=== PATIENT | female | born 1975 | race Caucasian/White ===

== ENCOUNTER 2017-02-01 19:57 | Inpatient (IN) | payer MEDICAID, OTHER ==
[~2017-02-01] VITALS: Ht 162.6 cm; Wt 111.0 kg
[2017-02-02] MEDS ORDERED: CINN500C14 PO (00:51)
[2017-02-02] MEDS ORDERED: NYST1POW23 MC (00:51)
[2017-02-02] MEDS ORDERED: CHOL500051 PO (00:51)
[2017-02-02] MEDS ORDERED: EVEN500C2 PO (00:51)
[2017-02-02] MEDS ORDERED: CALC650T19 PO (00:51)
[2017-02-02] MEDS ORDERED: GLIP10TA10 PO (00:51)
[2017-02-02] MEDS ORDERED: LAMO25TA PO (00:51)
[2017-02-02] MEDS ORDERED: INSU100V7 SUBQ (00:51)
[2017-02-02] MEDS ORDERED: LIP40 PO (00:51)
--- NOTE | 2017-02-02 00:52 | NUR ---
med rec med rec completed per interview with patient. plan to contact jose sorensen for further clarification.
[2017-02-02] MEDS ORDERED: LORazepam 1 mg Tablet PO PRN (01:10)
[2017-02-02] MEDS ORDERED: Alum-Mag Hydrox-Simeth 30 mL Suspension PO PRN (01:10)
[2017-02-02] MEDS ORDERED: Benzocaine-Menthol Lozenge 2/Pkg PO PRN (01:10)
[2017-02-02] MEDS ORDERED: Magnesium Hydroxide 10 mL Oral Concentration PO PRN (01:10)
--- NOTE | 2017-02-02 02:40 | NUR ---
Observations 1900 to 0700 Pt arrived on the floor via ambulance form [place] at 23:35 and was able to complete the entire intake process. Pt was polite and cooperative. Pt went to her room after the intake process was completed. Pt requested an ice pack. Pt first appeared asleep at 01:30 and was observed every 15 minutes through the night as directed.
--- NOTE | 2017-02-02 03:22 | NUR ---
Admit Note Voluntary admit from [facility] in [place]. Arrived on unit @ 233. Certified for 4 days from 02/01/17 to 02/04/17, with extension due on . Cigarette smoker, marijuana a few times a week, alcohol once a month or less. Allergic to Aspirin, Ibuprofen, Latex. Hx of Bipolar disorder, HTN, hyperlipidemia, Breast CA, sleep apnea. Refer to h/p. Pt reports always having thoughts of suicide since 2nd grade. Suicidal thoughts have increased since diagnosis of breast cancer two years ago. She saw her counselor [facility] today who brought her into the hospital. She did not feel safe at home. This is her first psychiatric hospitalization. She has two young daughters ages 8 & 9 years. They are staying with her mother. Upon admit she rated SI 3/10 with plan to OD on Aspirin which she is allergic too. Depression 7/10, Anxiety 10/10. Pt has dealt with chronic pain since her youth. Upon admit she had [place] pain rated 8/10, neck/low back pain rated 7/10. She requested and received Tylenol 650mg po prn with apparent results. She has been sleeping with no further complaint of pain. Pt seeking help, pleasant and cooperative with care. Addendum: 02/02/17 at 0609 by NYASIA GRAHAM RN Pt awoke diaphoretic at 0445. She requested a shower which she stated made her feel much better. A short time later she was found crying in her bathroom during safety checks. She stated "I want to go home. I miss my girls. I can't smoke. I just want to leave!" Pt agreed to wait to speak with the doctor and was able to return to bed. She appeared asleep again at 0600. Total sleep over 3.5 hours.
[2017-02-02 10:57] VITALS: BP 123/78; PULSE 91; RESP 16
--- NOTE | 2017-02-02 11:52 | PCM.DIMED ---
Discharge Instructions Date of Service Feb 02, 2017 Dates of Hospitalization Feb 01, 2017 at 23:41 Discharge Diagnosis Discharge Diagnosis Mood DO NOS Somatoform Pain DO Diet No restrictions Activity No restrictions Tramaine Vanessa DO Feb 02, 2017 11:52
--- NOTE | 2017-02-02 12:53 | NUR ---
Nursing Home Manager./ c.m. S.:"I don't feel that this is a right place for me. Being here makes me more anxious. I want to go home and that will be best place for me right now." O.: met with pt. and doctor together for initial interview. Pt. is vol. This is her 1st psych. hospitalization. She asked for discharge home because she didn't feel safe or comfortable here. "There are all these people around and nothing on a wall, no TV and nothing to do. I would be much better at home with my girls and my b.f.. I made a decision to be honest with people." She said that she had SI in the morning "because I'm here". She denied HI. Pt. is well connected with medical and mental health services. She has follow up appt. for counseling with Delia White tomorrow, February 03 at 15:00 at [facility] [place] ([phone]). She has follow up appt. for meds with NINA Vuong on February 12 at 9:30 am at [facility] ([phone]). Pt. said that her mother will come to pick her up. A.: pt. is isolative, quiet, doesn't want to be treated here. P.: monitor behavior, follow care plan.
--- NOTE | 2017-02-02 13:27 | NUR ---
Nursing Note Discharge Pt discharged this afternoon at 1315 with mother. Pt denies suicidal/homicidal ideation, audio/visual hallucinations. Pt cooperative & pleasant with discharge process. Pt signed all paperwork & expressed understanding of appointments that are set up. Copy of paperwork sent with pt. Pt received no scripts. Pt took all belongings with her.
--- NOTE | 2017-02-02 15:08 | HP ---
[address] [address] HISTORY AND PHYSICAL PATIENT: MARILEE SMALLS : 1975 MR#: [id number] ADMIT: 02/01/2017 JOB ID: [id number] INITIAL EVALUATION/DISCHARGE SUMMARY/SAME DAY SERVICE: DATE: 02/02/2017 IDENTIFICATION OF PATIENT: The patient is a 41-year-old female who was admitted on a voluntary basis with transfer from [facility]. The patient reportedly had presented with increasing thoughts of suicide after meeting with her outpatient counselor who is employed with the [facility] across the [facility] from [facility] the patient reported that she had been struggling with significant financial difficulties as related to her medical expenses, also significant history of chronic pain, and had revealed that she was contemplating suicide attempt with an overdose of aspirin. The patient states that she has been using a friend's Percocet and Vicodin and indicated that she has had significant difficulties with intractable pain. She indicated that she had not been honest with her outpatient care providers through [facility] on [address] [place] [address] in [place] and indicated that she would be open to referral to a Pain Clinic as related to her current difficulties. In reviewing her current status, she openly admitted to significant remorse and regret in reference to the suicidal thoughts. She indicated that she has two daughters, ages 8 and 9, and a long-term boyfriend of two years who love her greatly. She indicated that she had some fleeting suicidal thoughts this morning which were triggered by being on the inpatient unit and away from her family unit. She denied any specific intent or plan. She appeared to be somewhat dramatic on interaction with open identification of previous attempted suicide at the age of 13 with an aspirin overdose. She indicated that she was never hospitalized and believes that everybody thought that she just had the flu. In reviewing her current stressors, she openly identified significant financial difficulties as related to her medical expenses and difficulties with physical pain. She states that she has been using Percocet and Vicodin, up to one tablet per day. She admits to using marijuana 2-3 times per week and admitted to consumption of alcohol to the point of intoxication one time per month. 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 Historically, the patient states that she had obtained an 8th grade level education, later went back and obtained a GED in 2001 through [employer]. She reports that she was born and raised in [place], moved to the [facility], and lived in [place] at the age of 15. She reports that she has been seen in the outpatient sector at [facility] by a Vinnie Ennis nurse practitioner, and was prescribed doses of Lamictal which has now been titrated to 75 mg daily. She indicates that she does have a followup appointment next week. In reviewing her current safety plan, the patient openly identified that she would be with her boyfriend who is at home pretty much all time. She identified her two daughters as strong support and a willingness to follow up with outpatient counseling. ALLERGIES: 1. ASPIRIN. 2. IBUPROFEN. 3. LATEX. PAST MEDICAL HISTORY: She identifies a previous history of cancer and operative proceedings. Other medical history was reviewed through documentation through [facility]. I agree with findings. PHYSICAL EXAM: Deferred. PAST PSYCHIATRIC HISTORY: Substantial for the above information. SOCIAL HISTORY: As noted above. The patient also admitted to usage of 1/2 pack to one full pack of cigarettes per day. TRAUMA HISTORY: Not reviewed. FAMILY HISTORY: Positive for a history of depression throughout the maternal family unit. Also, a significant history of drug and alcohol difficulties in maternal aunts and uncles. DEVELOPMENT HISTORY: As noted above. MENTAL STATUS EXAM: General appearance: The patient made intermittent eye contact. She did become quite tearful and dramatic, indicating that this is not the right place for her. She indicates that she would be safe at home and willing to follow up with outpatient counseling. Her speech was of normal tone, frequency, and volume. Her mood was mildly depressed. Her affect was congruent. Her thought process showed no evidence of racing thoughts, flight of ideas, loose or disconnected thinking. Thought content: There was no expressed suicidal intent or plan. She admitted to suicidal thoughts as early as this morning. She denied any homicidal variant. No evidence of active hallucinations, delusions. She was alert, oriented to time and place. Attention and concentration intact. Insight and judgment are fair. DIAGNOSTIC IMPRESSIONS: AXIS I: 1. Mood disorder, not otherwise specified. 2. Rule out somatoform pain disorder. AXIS II: Cluster B personality traits. AXIS III: History of cancer with operative procedures. AXIS V: Global Assessment of Functioning of current 35-40. PLANS: 1. Recommendations to discharge to care of self with appropriate aftercare including outpatient individual therapy, medication management. 2. Continuation of Lamictal 75 mg daily. No prescriptions would be given. 3. Patient was highly encouraged to discuss with her care providers of a potential referral to a pain clinic in the local [facility].
[2017-02-02] MEDS ORDERED: Nystatin 100,000 Unit/Gm 15 Gm Powder TOPICAL PRN (20:30)
[2017-02-02] MEDS ORDERED: lamoTRIgine 25 mg Tablet PO SCH (21:00)
[2017-02-02] MEDS ORDERED: Insulin GLARgine 100 Unit/mL Syringe SUBQ SCH (21:00)
== END 2017-02-02 13:15 | disposition home or self-care (01) | DRG 753 ==
LOC: MHC 23:41
PROVIDERS: ADMIT Psychiatry & Neurology Psychiatry; ATTEND Psychiatry & Neurology Psychiatry
DX: F39 Unspecified mood [affective] disorder (principal); R45.851 Suicidal ideations; F45.41 Pain disorder exclusively related to psychological factors